=== PATIENT | male | born 1950 | race Caucasian/White ===

== ENCOUNTER 2017-04-21 09:01 | Day surgery (SDC) | payer MEDICARE, OTHER ==
[~2017-04-21] VITALS: Ht 165.1 cm; Wt 79.7 kg
[2017-04-21 09:35] VITALS: Ht 165.1 cm; Wt 79.7 kg
[2017-04-21 09:49] VITALS: BP 119/68; PULSE 89; RESP 19
[2017-04-21] MEDS ORDERED: DOCU-144 PO (09:57)
[2017-04-21] MEDS ORDERED: TAMS0.4C2 PO (09:57)
[2017-04-21] MEDS ORDERED: HYDROCHLOROQUINE (09:57)
[2017-04-21] MEDS ORDERED: OMEP20CA16 PO (09:57)
[2017-04-21] MEDS ORDERED: MET25 PO (09:57)
[2017-04-21] MEDS ORDERED: FER325 PO (09:57)
[2017-04-21] MEDS ORDERED: LIDOCAINE 2% (SDV) 5 ML INJ ONE (10:09)
[2017-04-21] MEDS ORDERED: PROPOFOL 20 ML ONE (10:09)
[2017-04-21] MEDS ORDERED: MIDAZOLAM 1 MG/ML 2 ML INJ ONE (10:09)
[2017-04-21 10:30] VITALS: BP 113/71; PULSE 70; RESP 31
[2017-04-21 10:55] VITALS: BP 135/75; PULSE 69; RESP 18
--- NOTE | 2017-04-21 13:08 | GILP ---
DATE OF PROCEDURE: 04/21/2017 PROCEDURE PERFORMED: 1. Esophagogastroduodenoscopy and biopsy. 2. Colonoscopy. SURGEON: Arron Jimenez MD PREOP DIAGNOSES: 1. Iron deficiency anemia. 2. Abdominal pain. 3. Change in bowel habits. POSTOPERATIVE DIAGNOSES: 1. Hiatal hernia. 2. Gastroesophageal reflux disease. 3. Gastritis with erosions. 4. Gastric mucosal biopsies were taken for Helicobacter pylori test. 5. Colonoscopy all the way to the cecum. 6. Internal hemorrhoids. 7. No colon neoplasm was identified. INDICATION: Mr. Jorge Mendoza is a 67-year-old male patient who had iron-deficiency anemia. He also had upper abdominal pain not responding to therapy. The patient also noticed change in the bowel habits. The patient was scheduled for endoscopy and colonoscopy for further evaluation. The procedures and possible complications were well explained to the patient. The patient understood and consented to the procedures. DESCRIPTION OF PROCEDURE: Under influence of anesthesia, the gastroscope was carefully introduced into the esophagus. Under direct vision it was advanced to the stomach into the pylorus into the duodenal bulb, and descending duodenum. Findings esophagus: The patient had hiatal hernia and gastroesophageal reflux disease. Stomach: He had gastritis with erosions. Gastric mucosal biopsies were taken for Helicobacter pylori test. Duodenum was normal. The colonoscope was carefully introduced in the rectum. Under direct vision it was advanced all the way to the cecum. Findings: The patient had internal hemorrhoids. No colitis or neoplasm was identified. He tolerated the procedures very well. There is no complications from the procedure. At the end of procedure she was awake with stable vital signs and he was discharged home in care of his family. IMPRESSION: 1. Hiatal hernia. 2. Gastroesophageal reflux disease. 3. Gastritis with erosions. 4. Item gastric mucosal biopsies were taken for Helicobacter pylori test. 5. Colonoscopy all the way to the cecum. 6. Internal hemorrhoids. 7. No colitis or neoplasm was identified. PLAN: 1. Continue omeprazole. 2. Add Zantac 300 mg p.o. nightly. 3. Await H. pylori test report. 4. Screening colonoscopy in 10 years. Dictated By: MD NILES Dumont/derik/abilio /Document#: [id number]
== END 2017-04-21 14:58 | disposition home or self-care (01) ==
LOC: GIL 09:01
PROVIDERS: ATTEND Internal Medicine Gastroenterology
DX: R19.4 Change in bowel habit (principal); K44.9 Diaphragmatic hernia without obstruction or gangrene; K21.9 Gastro-esophageal reflux disease without esophagitis; K29.60 Other gastritis without bleeding; K64.8 Other hemorrhoids
CPT/HCPCS: 43239; 45378; 87081; J2250